=== PATIENT | female | born 1970 | race Caucasian/White ===

== ENCOUNTER → 2016-05-18 | Outpatient (CLI) | payer OTHER ==
--- NOTE | 2016-05-18 10:12 | US ---
EXAMINATION TYPE: US abdomen complete DATE OF EXAM: 05/18/2016 9:53 AM COMPARISON: No previous CLINICAL HISTORY: R10.31 RLQ ABD Pain, K21.9 Gastroerophageal Reflux. Intermittent pelvic pain greate r on right x 1 month EXAM MEASUREMENTS: Liver Length: 14.6 cm Gallbladder Wall: 0.2 cm CBD: 0.3 cm Spleen: 10.3 cm Right Kidney: 10.1 x 4.1 x 5.5 cm Left Kidney: 10.7 x 5.1 x 4.4 cm TECHNOLOGIST IMPRESSION: Pancreas: visualized portion wnl, head and tail limited by overlying midline bowel gas Liver: wnl Gallbladder: wnl Evidence for sonographic Farley's sign: no CBD: visualized portions wnl, limited by overlying bowel gas Spleen: visualized portions wnl, limited by rib shadowing Right Kidney: visualized portions wnl, inferior pole obscured by overlying bowel gas Left Kidney: wnl Upper IVC: wnl Abd Aorta: wnl IMPRESSION: 1. Some limitation due to bowel gas. 2. Visualized abdomen ultrasound is unremarkable.
--- NOTE | 2016-05-18 10:15 | US ---
EXAMINATION TYPE: US pelvic complete DATE OF EXAM: 05/18/2016 9:29 AM COMPARISON: No previous CLINICAL HISTORY: R10.31 RLQ ABD Pain, K21.9 Gastroesophageal Reflux. Intermittent pelvic pain greate r on right x 1 month, history of , 4, para 4 TECHNIQUE: Transvaginal (TV) and Transabdominal (TA) Date of LMP: 3 weeks ago EXAM MEASUREMENTS: Uterus: 9.4 x 4.7 x 5.4 cm Endometrial Stripe: 1.4 cm Right Ovary: 2.6 x 2.3 x 3.5 cm Left Ovary: 2.5 x 1.8 x 1.9 cm TECHNOLOGIST IMPRESSION: 1. Uterus: Anteverted, heterogeneous without any definite lesions seen at this time, multiple naboth kay cysts 2. Endometrium: measures in upper limits of normal for patient's menstrual cycle at 1.4cm, heterogen eous 3. Right Ovary: 1.5 x 1.3cm complex irregular area with peripheral vascularity, 1.5 x 1.5cm complex irregular area 4. Left Ovary: wnl 5. Bilateral Adnexa: wnl 6. Posterior cul-de-sac: wnl IMPRESSION: 1. Nabothian cyst. 2. Complex right ovarian cyst. Short-term follow-up may be worthwhile.
== END | disposition home or self-care (01) ==
LOC: RADUSWWP 08:59
PROVIDERS: ATTEND Family Medicine
DX: N83.201 Unspecified ovarian cyst, right side (principal); N88.8 Other specified noninflammatory disorders of cervix uteri; R10.31 Right lower quadrant pain
CPT/HCPCS: 76700; 76830; 76856